=== PATIENT | female | born 1950 | race Caucasian/White ===

== ENCOUNTER 2017-01-29 17:27 | Observation (INO) | payer OTHER ==
--- NOTE | ~2017-01-29 | HP ---
History And Physical [id number] [place]. [address] NAME: CHEYANNE KEENAN : 50 STATUS : ADM Beatrice PAT#: [id number] AGE: 66 ADM/REG DATE : 01/29/17 MR#: [id number] REPORT SERV DATE: 01/30/17 DICTATED BY: KENN GEIGER DATE: 01/29/17 REPORT STATUS : Draft TRANSCRIBED BY: MODL DATE: 01/29/17 DATE OF ADMISSION: 01/29/2017 REASON FOR ADMISSION: Syncope, dehydration, and orthostasis. [employer]BER OTHER RANKS: Ysabel Liu M.D. CHIEF COMPLAINT: "I passed out." HISTORY OF PRESENT ILLNESS: A 66-year-old white female with a history of type 2 diabetes, coronary artery disease, hyperlipidemia, recent four-vessel CABG by Dr. Acuña few months ago, had suffered from what is likely a viral gastroenteritis with nausea, vomiting, diarrhea symptoms over the past week and decreased p.o. intake. Her diarrhea had resolved after this weekend, but then she went to her scheduled cardiac rehab today. She states that her blood pressure had been checked three times during cardiac rehab which is typical and every time her systolic blood pressure was in the 90s, although she continued to do rehab typically her blood pressure is normal. 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 Did not have any seizure activity. Her sugar levels were checked at that time, and was around the 140s. She was then brought down to [facility] for further evaluation where her blood pressure is now 132. She has been given at least 1 or 2 L of fluids, she feels much better. She states that her diarrhea has resolved. Denies any shortness of breath, chest pain, cough, dysuria. Hospitalist was asked to admit for further evaluation. REVIEW OF SYSTEMS: As per HPI. Otherwise, 10-point system were reviewed and are negative. PAST MEDICAL HISTORY: Positive for: 1. Cardiomyopathy. 2. History of a CVA. 3. Hyperlipidemia. 4. Hypertension. 5. Type 2 diabetes. 6. Obesity. 7. Coronary artery disease, status post CABG. PAST SURGICAL HISTORY: Includes: 1. A four-vessel CABG. 2. Bone spur surgery in the and . 3. Cholecystectomy in 2005. 4. Left knee surgery about 16 years ago. ALLERGIES: TO SULFA DRUGS. History And Physical [address] [address] NAME: CHEYANNE KEENAN : 50 STATUS : ADM Beatrice PAT#: [id number] AGE: 66 ADM/REG DATE : 01/29/17 MR#: [id number] REPORT SERV DATE: 01/30/17 DICTATED BY: KENN GEIGER DATE: 01/29/17 REPORT STATUS : Draft TRANSCRIBED BY: MODMelly DATE: 01/29/17 MEDICATIONS: Medications are being reviewed. SOCIAL HISTORY: She is for 44 years. Has two children. Denies any alcohol, smoking, or illegal drug use. FAMILY HISTORY: Positive for sudden cardiac . PHYSICAL EXAMINATION: VITAL SIGNS: On exam, blood pressure is 111/47, temperature is 37, pulse is 60, and respirations are 12. GENERAL: She is in no acute distress, alert and oriented x3. Very pleasant. Nontoxic appearing. Laughing. is at bedside. HEENT: Normocephalic and atraumatic head. Extraocular muscles intact. Oropharynx clear. NECK: Supple. No JVD. CARDIAC: Regular rhythm. No murmurs, rubs, or gallops. PULMONARY: Clear to auscultation bilaterally. ABDOMEN: Soft, nontender, and nondistended. Positive bowel sounds. EXTREMITIES: No clubbing, cyanosis, or edema. NEUROLOGIC: No focal deficits. PSYCHIATRIC: The patient is cooperative. Mood is appropriate. SKIN: Warm and dry. She has a well-healed sternotomy wound. No signs of infection. LABORATORY DATA: Labs show white blood cell count of 14.3, hemoglobin of 12, and platelet count of 185. BUN of 27, creatinine 1.61, and glucose of 127. Troponin is 0.02. Pelvis x-ray, lumbar x-ray, and sacral x-rays have been taken, but report is pending. EKG shows normal sinus rhythm. No significant abnormalities. IMPRESSION: 1. Vasovagal orthostatic syncope, now resolved. 2. Hypertension. 3. Dehydration secondary to viral gastroenteritis. 4. A recent four-vessel coronary artery bypass graft. 5. Acute kidney injury. 6. Type 2 diabetes. 7. Hyperlipidemia. PLAN: The plan is to do IV fluids. We will repeat a BMP and CBC in the morning. Obtain a procalcitonin and lactic acid level. We will check orthostasis in the morning along with a cortisol level. Adjust her medications. Likely go home tomorrow if her CBC looks better. Please note that her white count of 14,000 is likely secondary to hemoconcentrated blood from dehydration, but again infection is on the differential. History And Physical [address] [address] NAME: CHEYANNE KEENAN : 50 STATUS : ADM Beatrice PAT#: [id number] AGE: 66 ADM/REG DATE : 01/29/17 MR#: [id number] REPORT SERV DATE: 01/30/17 DICTATED BY: KENN GEIGER DATE: 01/29/17 REPORT STATUS : Draft TRANSCRIBED BY: GIULIANA DATE: 01/29/17 Anticipate discharging the patient home if her lab improves and her symptomatology has resolved. RADHA/GIULIANA Kenn Geiger MD / [id number] CC: Emmanuel Campoverde M.D. Ondrej J Lisy, M.D.
--- NOTE | ~2017-01-29 | DS ---
Discharge Summary [facility] [address] [place]. [address] NAME: CHEYANNE KEENAN : 50 STATUS : DIS Beatrice PAT#: [id number] AGE: 66 ADM/REG DATE : 01/29/17 MR#: [id number] REPORT SERV DATE: 01/31/17 DICTATED BY: ARNOLDO DAWKINS DATE: 01/31/17 REPORT STATUS : Draft TRANSCRIBED BY: MODL DATE: 01/31/17 ADMISSION DATE: 01/29/2017 DISCHARGE DATE: 01/31/2017 DIAGNOSES ON ADMISSION: 1. Vasovagal orthostatic syncope secondary to dehydration secondary to viral gastroenteritis. 2. Hypertension. 3. History of recent coronary artery bypass grafting. 4. Acute kidney injury secondary to dehydration. 5. Type 2 diabetes. 6. Hyperlipidemia. DIAGNOSES ON DISCHARGE: 1. Dehydration secondary to viral gastroenteritis, resolved. Blood pressure currently in the normal range. No evidence of hypertension. 2. Leukocytosis, present on admission, secondary to dehydration, resolved. No evidence of any infection. 3. Acute kidney injury secondary to dehydration, resolved. 4. Diabetes mellitus, controlled. 5. History of coronary artery disease with a history of recent coronary artery bypass grafting, asymptomatic. IMAGING STUDIES DONE DURING THIS HOSPITALIZATION: X-ray of the lumbar spine done 01/29/2017, no acute abnormality, degenerative chronic changes. X-ray of the sacrum, 01/30/2016, no acute fracture. X-ray of the pelvis on 01/29/2017, no evidence of any fracture. HISTORY OF PRESENT ILLNESS: Briefly, this is a very pleasant 66-year-old female who was admitted by my colleague, Dr. Geiger, for syncope, dehydration, and orthostasis secondary to viral gastroenteritis, which was accompanied with nausea, vomiting, and diarrhea. The patient was admitted to the hospital and she was started on IV fluid hydration. On admission, her creatinine was 1.61. She had negative troponin and she was doing well with IV fluid hydration. She had very low procalcitonin, and she was afebrile. Her vital gastroenteritis resolved. She does not have any symptoms, doing well, and tolerating food. On admission, she had orthostatic changes. Her blood pressure on sitting was 164/75, on lying was 162/76, and on standing was 138/60. After fluid hydration today, her blood pressure was checked; lying was 142/70, sitting 141/70, and standing 137/63, not orthostatic at all, doing very well. She does not have any abdominal pain. She had recently coronary artery bypass grafting and she did not have any symptoms. Her creatinine normalized and today her creatinine was 1.16. The patient was very stable to go home. DISCHARGE MEDICATIONS: Aspirin 81 mg a day, Lipitor 40 mg a day, fenofibrate 160 mg, and carvedilol 12.5 p.o. b.i.d. Discharge Summary [address] [address] NAME: CHEYANNE KEENAN : 50 STATUS : DIS Beatrice PAT#: [id number] AGE: 66 ADM/REG DATE : 01/29/17 MR#: [id number] REPORT SERV DATE: 01/31/17 DICTATED BY: ARNOLDO DAWKINS DATE: 01/31/17 REPORT STATUS : Draft TRANSCRIBED BY: GIULIANA DATE: 01/31/17 At home, the patient was on benazepril with hydrochlorothiazide. It was recommended for the patient to hold the benazepril with hydrochlorothiazide because her blood pressure was in the normal range and also she is just recovering from acute kidney injury and it was recommended to hold it and to check her BMP per Dr. Fabio Pettit on 02/04/2017, as well as blood pressure and to make a decision if she really needs to restart her Lotensin or it should be stopped because of her blood pressure currently being in the normal range. Also, her blood sugar was very well controlled here even without her giving metformin. Her blood sugar was 90 and 80, so she can take metformin at 750 mg p.o. daily. Carvedilol, it was recommended for the patient to restart at her home dose 12.5 p.o. twice a day. The patient's blood pressure here was stable in the range of 130/70, 120/70, 140/80 without carvedilol, so we just recommended to restart carvedilol and recheck blood pressure and see if she really needs any other medications for her blood pressure, as well as I recommended the patient to avoid nonsteroidal anti-inflammatories. The patient was discharged in a stable condition. She needs to follow up with her primary care physician, Dr. Fabio Pettit, on 02/04/2017, to check BMP and blood pressure and follow up with Dr. Liu, oil bay technician, as scheduled. She has an appointment with him scheduled this month. I spent 45 minutes on discharge. The patient was discharged in stable condition. DICTATED BY: Emmanuel Campoverde/GIULIANA Arnoldo Dawkins M.D. / [id number] CC: Emmanuel Campoverde M.D. Ondrej J Lisy, M.D.
[2017-01-29 16:57] LABS: BASOPHILS 0.1 %; BASOPHILS ABSOLUTE 0.02 10/3/uL (0.0-0.16); EOSINOPHILS 3.8 %; EOSINOPHILS ABSOLUTE 0.54 10/3/uL (0.0-0.53); ER CBC TAT 0 Hrs 05 Mins; IMMATURE GRANULOCYTES 0.5 %; IMMATURE GRANULOCYTES ABSOLUTE 0.07 10/3/uL (0.0-0.11); LYMPHOCYTES 14.2 %; LYMPHOCYTES ABSOLUTE 2.02 10/3/uL (0.67-4.30); MEAN CORPUS HGB CONC 32.3 g/dL (32.0-36.0); MEAN CORPUSCULAR HEMOGLOB 29.4 pg (26.0-34.0); MEAN PLATELET VOLUME 12.4 fL (9.2-13.0); MONOCYTES 5.7 %; MONOCYTES ABSOLUTE 0.81 10/3/uL (0.21-1.20); NEUTROPHILS 75.7 %; NEUTROPHILS ABSOLUTE 10.81 10/3/uL (2.02-8.40); PLATELET COUNT 185 10/3/uL (150-400); RBC DISTRIBUTION WIDTH 13.9 % (12.0-16.0); WHITE BLOOD CELLS 14.3 10/3/uL (4.5-10.5)
[2017-01-29 16:59] LABS: HEMATOCRIT 37.5 % (36.0-48.0); HEMOGLOBIN 12.1 g/dL (12.0-16.0); MANUAL DIFF NO %; RED CELL COUNT 4.12 10/6/uL (4.0-5.6)
[2017-01-29 17:05] LABS: INTERNATIONAL NORMAL RATI 1.1 UNITS (-); PARTIAL THROMBO TIME 23.1 SEC (22.5-37.2)
[2017-01-29 17:06] LABS: PROTIME (NOT ORD) 13.7 SEC (12.0-14.5)
[2017-01-29 17:15] LABS: CHEST PAIN PROFILE TAT 0 Hrs 23 Mins; CHLORIDE, SERUM 109 MMOL/L (96-112); CO2 (CARBON DIOXIDE) 26 MMOL/L (24-34); GLUCOSE, SERUM 127 MG/DL (60-99); SODIUM, SERUM 143 MMOL/L (135-148); TROPONIN I <0.02 NG/ML (<0.05)
[2017-01-29 17:18] LABS: BUN (BLOOD UREA NITROGEN) 27 MG/DL (6-23); CALCIUM, SERUM 9.3 MG/DL (8.5-10.4); CREATININE 1.61 MG/DL (0.55-1.02); GFR AFRICAN AMERICAN 38 ML/MIN (>=60); GFR NON AFRICAN AMERICAN 33 ML/MIN (>=60)
[~2017-01-29 17:27] MED LIST: ASAB PO; COREG6 PO; GLUCOPHXR7 PO; IMDUR30 PO; LANTUSCART SC; LIPITOR40 PO; LOFIB160 PO; LOP25 PO; LOTE5 PO; LOTENSIN HCT1 TA1 PO; LOTENSIN HCT1 TA2 PO; NITROSTAT0.4 MG SL; NORCO1 TA1 PO; PRILOSEC40 MG PO
[2017-01-29] MEDS ORDERED: LOTENSIN HCT1 TA2 PO (18:19)
[2017-01-29] MEDS ORDERED: LIPITOR40 PO (18:19)
[2017-01-29] MEDS ORDERED: COREG12 PO (18:19)
[2017-01-29] MEDS ORDERED: LOFIB160 PO (18:20)
[2017-01-29] MEDS ORDERED: ASAB PO (18:20)
[2017-01-29] MEDS ORDERED: GLUCOPHXR7 PO (18:20)
[2017-01-29] MEDS ORDERED: LOTE5 PO (18:20)
[2017-01-29] MEDS ORDERED: ADVIL PO (18:21)
[2017-01-30 03:17] LABS: BASOPHILS 0.2 %; BASOPHILS ABSOLUTE 0.02 10/3/uL (0.0-0.16); EOSINOPHILS 4.6 %; EOSINOPHILS ABSOLUTE 0.51 10/3/uL (0.0-0.53); HEMATOCRIT 35.8 % (36.0-48.0); HEMOGLOBIN 11.6 g/dL (12.0-16.0); IMMATURE GRANULOCYTES 0.2 %; IMMATURE GRANULOCYTES ABSOLUTE 0.02 10/3/uL (0.0-0.11); LYMPHOCYTES ABSOLUTE 2.68 10/3/uL (0.67-4.30); MEAN CORPUS HGB CONC 32.4 g/dL (32.0-36.0); MEAN CORPUSCULAR HEMOGLOB 29.7 pg (26.0-34.0); MEAN CORPUSCULAR VOLUME 91.8 fL (80-100); MEAN PLATELET VOLUME 12.6 fL (9.2-13.0); MONOCYTES 7.6 %; MONOCYTES ABSOLUTE 0.85 10/3/uL (0.21-1.20); NEUTROPHILS 63.4 %; NEUTROPHILS ABSOLUTE 7.07 10/3/uL (2.02-8.40); PLATELET COUNT 193 10/3/uL (150-400); RBC DISTRIBUTION WIDTH 13.5 % (12.0-16.0); WHITE BLOOD CELLS 11.2 10/3/uL (4.5-10.5)
[2017-01-30 03:19] LABS: MANUAL DIFF NO %
[2017-01-30 03:36] LABS: ALBUMIN 3.4 G/DL (3.5-5.0); CALCIUM, SERUM 8.8 MG/DL (8.5-10.4); CHLORIDE, SERUM 110 MMOL/L (96-112); CO2 (CARBON DIOXIDE) 28 MMOL/L (24-34); CREATININE 1.32 MG/DL (0.55-1.02); GFR AFRICAN AMERICAN 49 ML/MIN (>=60); GFR NON AFRICAN AMERICAN 42 ML/MIN (>=60); GLUCOSE, SERUM 109 MG/DL (60-99); PHOSPHORUS, SERUM 2.9 MG/DL (2.5-4.5); SGOT(AST) 20 U/L (5-40); SGPT(ALT) 22 U/L (5-65); SODIUM, SERUM 143 MMOL/L (135-148); TOTAL BILIRUBIN 0.4 MG/DL (0-1.2); TOTAL PROTEIN 6.6 G/DL (6.0-8.5)
[2017-01-30 03:37] LABS: A/G RATIO 1.1 (0.7-1.9); ALKALINE PHOSPHATASE 46 U/L (45-117); BUN (BLOOD UREA NITROGEN) 22 MG/DL (6-23); GLOBULIN 3.2 G/DL (2.5-4.1); POTASSIUM, SERUM 3.9 MMOL/L (3.5-5.3)
[2017-01-30 04:23] LABS: PROCALCITONIN <0.05 ng/mL (<0.5)
[2017-01-30 15:42] LABS: ASCORBIC ACID (UR NOT ORDER) NEG (NEG); BILIRUBIN, URINE NEGATIVE (NEG); KETONE, URINE NEGATIVE (NEG); LEUKOCYTE ESTERASE(NOT OR NEG (NEG); WBC (NOT ORDERED) (RFLEX) 1 (0-5)
[2017-01-31 05:39] LABS: BASOPHILS 0.5 %; BASOPHILS ABSOLUTE 0.04 10/3/uL (0.0-0.16); EOSINOPHILS 8.7 %; HEMATOCRIT 35.5 % (36.0-48.0); HEMOGLOBIN 11.5 g/dL (12.0-16.0); IMMATURE GRANULOCYTES 0.4 %; IMMATURE GRANULOCYTES ABSOLUTE 0.03 10/3/uL (0.0-0.11); LYMPHOCYTES 34.8 %; LYMPHOCYTES ABSOLUTE 2.79 10/3/uL (0.67-4.30); MEAN CORPUS HGB CONC 32.4 g/dL (32.0-36.0); MEAN CORPUSCULAR HEMOGLOB 29.3 pg (26.0-34.0); MEAN CORPUSCULAR VOLUME 90.6 fL (80-100); MEAN PLATELET VOLUME 12.1 fL (9.2-13.0); MONOCYTES ABSOLUTE 0.72 10/3/uL (0.21-1.20); NEUTROPHILS 46.6 %; NEUTROPHILS ABSOLUTE 3.73 10/3/uL (2.02-8.40); PLATELET COUNT 172 10/3/uL (150-400); RBC DISTRIBUTION WIDTH 13.6 % (12.0-16.0); RED CELL COUNT 3.92 10/6/uL (4.0-5.6)
[2017-01-31 05:41] LABS: MANUAL DIFF NO %
[2017-01-31 05:48] LABS: BUN (BLOOD UREA NITROGEN) 16 MG/DL (6-23); CALCIUM, SERUM 8.5 MG/DL (8.5-10.4); CHLORIDE, SERUM 111 MMOL/L (96-112); CO2 (CARBON DIOXIDE) 27 MMOL/L (24-34); CREATININE 1.16 MG/DL (0.55-1.02); GFR AFRICAN AMERICAN 57 ML/MIN (>=60); GFR NON AFRICAN AMERICAN 49 ML/MIN (>=60); GLUCOSE, SERUM 97 MG/DL (60-99); POTASSIUM, SERUM 3.8 MMOL/L (3.5-5.3); SODIUM, SERUM 146 MMOL/L (135-148)
== END 2017-01-31 12:12 | disposition home or self-care (01) ==
LOC: ER 17:27 → CDU1 18:48
PROVIDERS: Emergency Medicine; Hospitalist; Internal Medicine
DX: I95.1 Orthostatic hypotension (principal); E11.9 Type 2 diabetes mellitus without complications; I25.10 Atherosclerotic heart disease of native coronary artery without angina pectoris; I10 Essential (primary) hypertension; I42.9 Cardiomyopathy, unspecified; E78.5 Hyperlipidemia, unspecified; K21.9 Gastro-esophageal reflux disease without esophagitis; E78.00 Pure hypercholesterolemia, unspecified; E66.9 Obesity, unspecified; Z90.49 Acquired absence of other specified parts of digestive tract; Z95.1 Presence of aortocoronary bypass graft; Z86.73 Personal history of transient ischemic attack (TIA), and cerebral infarction without residual deficits; Z48.812 Encounter for surgical aftercare following surgery on the circulatory system; Z98.890 Other specified postprocedural states; Z88.2 Allergy status to sulfonamides; Z79.82 Long term (current) use of aspirin; Z79.899 Other long term (current) drug therapy
CPT/HCPCS: 72100; 72170; 72220; 80048; 80053; 81001; 82533; 82962; 83605; 83735; 84100; 84145; 84484; 85025; 85610; 85730; 93005; 93798; 96372; 99285; A9270-GY; G0378